=== PATIENT | female | born 1950 | race Caucasian/White ===

== ENCOUNTER → 2016-09-25 | Outpatient (CLI) | payer OTHER, BC ==
[~2016-09-25] MED LIST: ACTOPLUS MET 851 TAB PO; BYSTOLIC10 MG PO; CELEBREX 200MG200 MG PO; CIPRO 500MG TA500 MG PO; COUMADIN4 MG PO; L-LYSINE500 MG PO; LIPITOR 10MG10 MG PO; LOPRESSOR 550 MG/TAB PO; MILK OF MA400 MG/5 M PO; MULTIPLE VITAMI1 CAP PO; NASONEX SPRAY17 GM NS; NORCO 325 MG-7.1 TAB PO; PRILOSEC10 MG PO; PRINIVIL10 MG PO; SENOKOT S 50 MG1 TAB PO; STOOL SOFTENER100 M2 PO; SYNTHROID0.05 MG PO; TYLENOL EXTRA500 M1 PO; ULTRAM ER100 MG PO; VESICARE 5MG5 MG PO; ZESTRIL 10MG10 MG PO
== END ==
LOC: MC.RAD 16:46
DX: Z12.31 Encounter for screening mammogram for malignant neoplasm of breast (principal)

== ENCOUNTER 2016-11-26 16:30 | Outpatient (RCR) | payer BC | END 2016-12-11 09:01 | disposition home or self-care (01) | LOC: WSPT 16:30 | DX: M25.572 Pain in left ankle and joints of left foot (principal); M25.571 Pain in right ankle and joints of right foot ==

== ENCOUNTER 2019-01-18 01:25 | Emergency (ER) | payer BC ==
[~2019-01-18] VITALS: Ht 162.6 cm; Wt 114.5 kg
[2019-01-18 01:40] VITALS: TEMP 98.7
[2019-01-18 03:21] LABS: BASO % 0.2 % (0.0-2.0); EOS # 1.2 (0.0-0.7); GRAN # 9.1 (1.4-6.5); GRAN % 73.5 % (42.2-75.2); HEMATOCRIT 40.7 % (37.0-47.0); HEMOGLOBIN 13.6 g/dl (12.5-16.0); LYMPH # 0.9 (1.2-3.4); LYMPH % 7.6 % (20.0-51.0); MEAN CELL VOLUME 89 fl (80.0-100.0); MEAN CORPUSCULAR HEMOGLOBIN 30 pg (27.0-31.0); MEAN CORPUSCULAR HGB CONC 33 g/dl (33.0-37.0); MEAN PLATELET VOLUME 11.1 fl (7.4-10.4); MONO % 8.2 % (1.7-9.3); PLATELET COUNT 198 K/mm3 (130-400); RED BLOOD COUNT 4.59 M/mm3 (4.10-5.30); REDCELL DISTRIBUTION WIDTH-CV 14.8 % (11.5-14.5)
[2019-01-18 03:50] LABS: ALBUMIN 3.9 gm/dL (3.5-5.0); C-REACTIVE PROTEIN 2.6 mg/dL (0.0-0.9); CALCIUM 9.4 mg/dL (8.4-10.2); CREATININE, serum 1.08 (0.52-1.25); MAGNESIUM 1.4 mg/dL (1.6-2.3); PHOSPHOROUS 3.7 mg/dL (2.5-4.5); POTASSIUM 3.3 mmol/L (3.4-5.0); TOTAL PROTEIN 6.9 gm/dL (6.4-8.2)
[2019-01-18 04:17] LABS: THYROID STIMULATING HORMONE 7.09 uIU/mL (0.465-4.680)
[2019-01-18 05:50] LABS: COLLECTION METHOD CLEAN CATCH
[2019-01-18 06:01] LABS: HYALINE CAST >12 /lpf; MUCOUS Present /lpf; PH 5 (5-8); SQUAMOUS EPITHELIAL 0-2 /hpf; URINE APPEARANCE Clear; URINE BACTERIA None Seen /hpf; URINE BILIRUBIN Negative (NEGATIVE); URINE BLOOD Negative (NEGATIVE); URINE COLOR Yellow; URINE GLUCOSE Negative (NEGATIVE); URINE KETONE Negative (NEGATIVE); URINE LEUKOCYTE ESTERASE Negative (NEGATIVE); URINE NITRATE Negative (NEGATIVE); URINE PROTEIN(semi-quant) Negative (NEGATIVE); URINE RBC 0-2 /hpf; URINE UROBILINOGEN Negative (NEGATIVE)
[2019-01-18] MEDS ORDERED: GLUCOPHAGE500 MG/TAB PO (06:54)
[2019-01-18] MEDS ORDERED: HCTZ 25MG TAB25 MG PO (06:55)
[2019-01-18] MEDS ORDERED: COZAAR100 MG PO (06:56)
[2019-01-18] MEDS ORDERED: VESICARE10 MG PO (06:58)
[2019-01-18] MEDS ORDERED: MYRBETR50MG PO (06:58)
[2019-01-18] MEDS ORDERED: TOPROL XL100 MG PO (06:59)
[2019-01-18] MEDS ORDERED: TRULICITY0.75 MG/0. (07:00)
[2019-01-18] MEDS ORDERED: ZOLOFT 50MG50 MG PO (07:00)
[2019-01-18] MEDS ORDERED: ULTRAM 50MG TAB50 MG PO (07:52)
[2019-01-18] MEDS ORDERED: CIPRO 500MG TA500 MG PO (07:52)
[2019-01-18] MEDS ORDERED: FLAGYL500 MG PO (07:52)
[2019-01-18] MEDS ORDERED: ZOFRAN ODT4 MG PO (07:52)
[2019-01-18 08:00] VITALS: BP 112/70; PULSE 75
== END 2019-01-18 08:15 | disposition home or self-care (01) ==
LOC: COL.ER 01:25
PROVIDERS: Emergency Medicine
DX: K52.9 Noninfective gastroenteritis and colitis, unspecified (principal); E86.0 Dehydration; E11.9 Type 2 diabetes mellitus without complications; I10 Essential (primary) hypertension; Z98.890 Other specified postprocedural states; Z79.84 Long term (current) use of oral hypoglycemic drugs
CPT/HCPCS: J2405; J3475; J3480; J7030; Q9967

== ENCOUNTER 2019-05-10 13:33 | Day surgery (SDC) | payer BC ==
[~2019-05-10] VITALS: Ht 162.6 cm; Wt 117.5 kg
[~2019-05-10 13:33] MED LIST changes: +COZAAR100 MG PO; +FLAGYL500 MG PO; +GLUCOPHAGE500 MG/TAB PO; +HCTZ 25MG TAB25 MG PO; +MYRBETR50MG PO; -SYNTHROID0.05 MG PO; +SYNTHROID0.05 MG/TA PO; +TOPROL XL100 MG PO; +TRULICITY0.75 MG/0. SQ; +ULTRAM 50MG TAB50 MG PO; +VESICARE10 MG PO; +ZOFRAN ODT4 MG PO; +ZOLOFT 50MG50 MG PO
[2019-05-10 13:47] VITALS: BP 185/79; PULSE 63; TEMP 97.6
[2019-05-10] MEDS ORDERED: PRIL40 PO (14:04)
[2019-05-10] MEDS ORDERED: ZOVIRAX800 MG PO (14:05)
[2019-05-10] MEDS ORDERED: ASPIRIN 81M81 MG/TA2 PO (14:06)
[2019-05-10] MEDS ORDERED: FLEXERIL5 MG PO (14:06)
[2019-05-10] MEDS ORDERED: NAPROSYN500 MG PO (14:07)
[2019-05-10] MEDS ORDERED: OXYTROL PA1 PATCH.BW TD (14:13)
[2019-05-10 15:30] VITALS: BP 193/89; PULSE 63; TEMP 97.6
--- NOTE | 2019-05-10 15:30 | NUR ---
The patient arrived back to [facility] from the Endoscopy suite at this time. The patient appears alert and oriented and ambulated from the cart to the recliner in her room with the stand by assistance of two nurses and appeared to tolerate the activity well. Dr. De Jesus came to discuss the findings of the procedure with the patient and her friend. The patient's post procedure vital signs were started at this time. Call light is within reach. The patient was given a coke to try at this time. Will continue to monitor the patient.
[2019-05-10 15:45] VITALS: BP 171/85; PULSE 65
--- NOTE | 2019-05-10 15:45 | NUR ---
The patient appears to be resting comfortably in the recliner. The patient has tried the coke and appears to be tolerating it well. The patient's friend remains at her bedside. The patient's blood pressure is trending down. Will continue to monitor the patient.
[2019-05-10 16:07] VITALS: BP 161/73; PULSE 61
--- NOTE | 2019-05-10 16:07 | NUR ---
Discharge instructions were reviewed with the patient at this time. She verbalized understanding and has no questions for the nurse at this time. The patient's IV to her right hand was removed and a pressure dressing was applied to the site. The nurse instructed the patient to get dressed and notify the staff when she is ready to be escorted out.
--- NOTE | 2019-05-10 16:11 | NUR ---
The patient was escorted out via wheelchair to a private vehicle by KRISTA Jerez. The patient's belongings and discharge paperwork were sent with her. The patient's friend is present to drive her home.
== END 2019-05-10 16:12 | disposition home or self-care (01) ==
LOC: SDCO 13:33
DX: R07.89 Other chest pain (principal); K21.9 Gastro-esophageal reflux disease without esophagitis; G47.30 Sleep apnea, unspecified; E11.9 Type 2 diabetes mellitus without complications; Z79.84 Long term (current) use of oral hypoglycemic drugs; Z79.82 Long term (current) use of aspirin; Z79.899 Other long term (current) drug therapy; E07.9 Disorder of thyroid, unspecified; I10 Essential (primary) hypertension; E78.00 Pure hypercholesterolemia, unspecified; D64.9 Anemia, unspecified
CPT/HCPCS: J2250; J3010; J7030

== ENCOUNTER → 2019-08-03 | Outpatient (CLI) | payer BC ==
[~2019-08-03] MED LIST changes: +ASPIRIN 81M81 MG/TA2 PO; +FLEXERIL5 MG PO; +NAPROSYN500 MG PO; +OXYTROL PA1 PATCH.BW TD; +PRIL40 PO; +ZOVIRAX800 MG PO
== END ==
LOC: MC.RAD 14:41
DX: Z12.31 Encounter for screening mammogram for malignant neoplasm of breast (principal)

== ENCOUNTER → 2020-10-25 | Outpatient (CLI) | payer BC | LOC: COL.RAD 07:30 | DX: K76.0 Fatty (change of) liver, not elsewhere classified (principal); K76.89 Other specified diseases of liver ==

== ENCOUNTER → 2021-09-24 | Outpatient (CLI) | payer BC | LOC: MC.RAD 12:54 | DX: Z12.31 Encounter for screening mammogram for malignant neoplasm of breast (principal) ==

== ENCOUNTER 2021-10-30 06:53 | Day surgery (SDC) | payer BC ==
[~2021-10-30] VITALS: Ht 162.6 cm; Wt 113.9 kg
[2021-10-30 07:41] VITALS: BP 161/97; PULSE 77; TEMP 98.2
[2021-10-30] MEDS ORDERED: SYNTHROID0.075 MG/T PO (07:54)
[2021-10-30] MEDS ORDERED: BRINTELLIX10 PO (07:58)
[2021-10-30] MEDS ORDERED: NORVASC 5MG5 MG/TAB PO (07:59)
[2021-10-30] MEDS ORDERED: VITAMIN D250 MCG PO (07:59)
[2021-10-30] MEDS ORDERED: VITAMIN B12 781 TAB PO (08:00)
[2021-10-30 08:40] VITALS: BP 154/86; PULSE 78; TEMP 98.6
--- NOTE | 2021-10-30 08:40 | NUR ---
The patient arrived back to [facility] from the Endoscopy Suite at this time. The patient appears alert and oriented and ambulated from the cart to the recliner in her room with the stand by assistance of two nurses. Post procedure vital signs were started at this time. The patient agrees to try some jello and iced tea. The patient's is at her bedside. Will continue to monitor the patient.
[2021-10-30 08:55] VITALS: BP 165/82; PULSE 80
--- NOTE | 2021-10-30 08:55 | NUR ---
The patient appears to be tolerating the food and drink well. She is waiting to speak with Dr. Apple prior to her discharge.
[2021-10-30 09:10] VITALS: BP 164/91; PULSE 66
--- NOTE | 2021-10-30 09:15 | NUR ---
The patient is speaking with Dr. Apple about the findings of the procedure.
--- NOTE | 2021-10-30 09:20 | NUR ---
Discharge instructions were reviewed with the patient and her at this time. The patient's IV to her right hand was removed and a pressure dressing was applied to the site. The nurse instructed the pateint to get dressed and notify the staff when she is ready to be escorted out.
--- NOTE | 2021-10-30 09:30 | NUR ---
The patient was escorted to a private vehicle by KRISTA Tolentino. The patient's belongings and dischare paperwork were sent with her. The patient's is present to drive her home.
== END 2021-10-30 09:30 | disposition home or self-care (01) ==
LOC: SDCO 06:53
DX: Z12.11 Encounter for screening for malignant neoplasm of colon (principal); D12.4 Benign neoplasm of descending colon; K63.5 Polyp of colon; K62.89 Other specified diseases of anus and rectum; K64.0 First degree hemorrhoids; K64.4 Residual hemorrhoidal skin tags; K21.9 Gastro-esophageal reflux disease without esophagitis; I10 Essential (primary) hypertension; G47.33 Obstructive sleep apnea (adult) (pediatric); E11.9 Type 2 diabetes mellitus without complications; M19.90 Unspecified osteoarthritis, unspecified site; M54.9 Dorsalgia, unspecified; G89.29 Other chronic pain; Z99.89 Dependence on other enabling machines and devices; Z79.890 Hormone replacement therapy; Z79.899 Other long term (current) drug therapy; Z79.84 Long term (current) use of oral hypoglycemic drugs; Z79.1 Long term (current) use of non-steroidal anti-inflammatories (NSAID); Z85.828 Personal history of other malignant neoplasm of skin
CPT/HCPCS: J2405; J2704; J7030

== ENCOUNTER → 2022-01-27 | Outpatient (CLI) | payer BC ==
[~2022-01-27] MED LIST changes: +BRINTELLIX10 PO; +NORVASC 5MG5 MG/TAB PO; +SYNTHROID0.075 MG/T PO; +VITAMIN B12 781 TAB PO; +VITAMIN D250 MCG PO
== END ==
LOC: COL.RAD 09:51
DX: K76.0 Fatty (change of) liver, not elsewhere classified (principal); K21.9 Gastro-esophageal reflux disease without esophagitis; R74.8 Abnormal levels of other serum enzymes

== ENCOUNTER → 2023-01-09 | Outpatient (CLI) | payer BC | LOC: COL.RAD 10:48 | DX: K76.0 Fatty (change of) liver, not elsewhere classified (principal); K21.9 Gastro-esophageal reflux disease without esophagitis; K22.4 Dyskinesia of esophagus; R53.83 Other fatigue ==

== ENCOUNTER → 2023-07-09 | Outpatient (CLI) | payer BC | LOC: COL.RAD 10:28 | DX: K76.0 Fatty (change of) liver, not elsewhere classified (principal); K21.9 Gastro-esophageal reflux disease without esophagitis; K22.4 Dyskinesia of esophagus; R07.89 Other chest pain ==

== ENCOUNTER → 2023-12-15 | Outpatient (CLI) | payer BC | LOC: MHCPAIN 09:55 | DX: M25.561 Pain in right knee (principal); M25.562 Pain in left knee; Z96.653 Presence of artificial knee joint, bilateral | CPT/HCPCS: G0463 ==

== ENCOUNTER → 2024-01-12 | Outpatient (CLI) | payer BC | LOC: MC.RAD 10:28 | DX: Z12.31 Encounter for screening mammogram for malignant neoplasm of breast (principal) ==